=== PATIENT | female | born 1985 | race Caucasian/White ===

== ENCOUNTER 2016-08-21 01:02 | Inpatient (IN) | payer MEDICAID ==
[2016-08-21] VITALS (11 sets, daily range): BP systolic 97–134; RESP 16–18; TEMP 98.1–98.7; BMI 28.7
[~2016-08-21] VITALS: Ht 170.2 cm; Wt 83.0 kg
[2016-08-21] MEDS ORDERED: PROMETHAZINE 25 MG/ML VIAL IV PRN (01:55)
[2016-08-21] MEDS ORDERED: FAMOTIDINE 20 MG INJ IV PRN (01:55)
[2016-08-21] MEDS ORDERED: ONDANSETRON 4 MG VIAL IV PRN (01:55)
[2016-08-21] MEDS ORDERED: CEFAZOLIN (LD/OB) 100 ML IV PRN (01:55)
[2016-08-21] MEDS ORDERED: LIDOCAINE 1% BUFFERED 1 ML SYR INTRADERM PRN (01:55)
[2016-08-21] MEDS ORDERED: LIDOCAINE 1% 30 ML PF INFILTRATE ONE (01:55)
[2016-08-21] MEDS ORDERED: TERBUTALINE 1 MG/ML VIAL SUBQ PRN (01:55)
[2016-08-21] MEDS ORDERED: LACT RINGERS 1,000 ML IV SCH (01:55)
[2016-08-21] MEDS ORDERED: METOCLOPRAMIDE 10 MG/2 ML VIAL IV PUSH PRN (01:55)
[2016-08-21] MEDS ORDERED: ALU/MAG/SIM 30 ML UDC PO PRN (01:55)
[2016-08-21] MEDS ORDERED: ACETAMINOPHEN 325 MG TAB PO PRN (01:55)
[2016-08-21] MEDS ORDERED: FAMOTIDINE 20 MG TAB PO PRN (01:55)
[2016-08-21] MEDS ORDERED: FENTANYL 100 MCG/2 ML AMP ONE (03:20)
[2016-08-21] MEDS ORDERED: ROPIV/FENT 0.2%-2MCG/ML 100 ML EPIDURAL ONE (03:20)
[2016-08-21] MEDS ORDERED: FENTANYL 100 MCG/2 ML AMP EPIDURAL ONE (03:55)
[2016-08-21] MEDS ORDERED: LACT RINGERS 500 ML IV PRN (03:55)
[2016-08-21] MEDS ORDERED: LACT RINGERS 500 ML IV ONE (03:55)
[2016-08-21] MEDS ORDERED: ROPIV/FENT 0.2%-2MCG/ML 100 ML EPIDURAL SCH (03:55)
[2016-08-21] MEDS ORDERED: SODIUM CHLORIDE 0.9% 500 ML IV PRN (03:55)
[2016-08-21] MEDS ORDERED: **ONLY ANESTEHSIA MAY ORDER OPIATES WHILE ON EPIDURAL XX SCH (08:00)
[2016-08-21] MEDS ORDERED: OXYTOCIN 15 UNITS/250 ML NS 250 ML IV SCH ×2 (09:00→11:10)
[2016-08-21] MEDS: OXYTOCIN 15 UNITS/250 ML NS 250 ML IV SCH ×2 (09:12→11:15)
[2016-08-21] MEDS ORDERED: BUPIVACAINE 0.25% PF 10ML EPIDURAL ONE (10:59)
[2016-08-21] MEDS ORDERED: ZOLPIDEM 5 MG TAB PO PRN (11:10)
[2016-08-21] MEDS ORDERED: MAG HYDROX 30 ML UDC PO PRN (11:10)
[2016-08-21] MEDS ORDERED: DERMOPLAST SPRAY TOPICAL PRN (11:10)
[2016-08-21] MEDS ORDERED: TDaP 0.5 ML VIAL IM.VACC ONE (11:10)
[2016-08-21] MEDS ORDERED: ASTRINGENT MED PADS 40'S TOPICAL PRN (11:10)
[2016-08-21] MEDS ORDERED: MEASLES,MUMPS,RUBELLA VAC SUBQ.VACC ONE (11:10)
[2016-08-21] MEDS: Ibuprofen 600 MG TAB PO PRN ×2 (14:55→21:12)
[2016-08-21] MEDS: OXYCODONE/APAP 5/325 TAB PO PRN (14:55)
[2016-08-21] MEDS: NICOTINE 21 MG/24 HR TRANSDERM SCH (17:57)
[2016-08-22 02:24] VITALS: BP_SYST 105; RESP 16; TEMP 97.9
[2016-08-22] MEDS: Ibuprofen 600 MG TAB PO PRN ×3 (05:26→17:54)
[2016-08-22 05:30] VITALS: BP_SYST 100; RESP 20; TEMP 97.5
[2016-08-22] MEDS: NICOTINE 21 MG/24 HR TRANSDERM SCH (09:00)
[2016-08-22] MEDS: DOCUSATE SOD 100 MG CAP PO SCH (09:20)
[2016-08-22 09:24] VITALS: BP_SYST 114; RESP 18; TEMP 97.8
[2016-08-22] MEDS ORDERED: TDaP 0.5 ML VIAL IM.VACC ONE ×2 (16:12→16:50)
[2016-08-22 17:36] VITALS: BP_SYST 120; RESP 16; TEMP 97.7
[2016-08-22] MEDS: OXYCODONE/APAP 5/325 TAB PO PRN (19:21)
[2016-08-23] MEDS: Ibuprofen 600 MG TAB PO PRN ×2 (00:52→08:05)
[2016-08-23 05:08] VITALS: BP_SYST 94; RESP 15; TEMP 97.8
[2016-08-23] MEDS: DOCUSATE SOD 100 MG CAP PO SCH (08:04)
[2016-08-23] MEDS: NICOTINE 21 MG/24 HR TRANSDERM SCH (08:06)
[2016-08-23 09:42] VITALS: BP_SYST 113; RESP 18; TEMP 98.1
[2016-08-23 10:09] VITALS: BP_SYST 113; RESP 18; TEMP 98.1
== END 2016-08-23 14:22 | disposition home or self-care (01) | DRG 775 ==
LOC: LDOP 01:02 → LD 01:55 → OB 17:06
PROVIDERS: ADMIT Obstetrics & Gynecology; ATTEND Obstetrics & Gynecology
PROC: 10907ZC Drainage of Amniotic Fluid, Therapeutic from Products of Conception, Via Natural or Artificial Opening (ICD-10-PCS; principal; 2016-08-21)
PROC: 10E0XZZ Delivery of Products of Conception, External Approach (ICD-10-PCS; 2016-08-21)
PROC: 0KQM0ZZ Repair Perineum Muscle, Open Approach (ICD-10-PCS; 2016-08-21)
CPT/HCPCS: 84112; 85025; 96372